=== PATIENT | male | born 1945 | race African-American/Black ===

== ENCOUNTER → 2017-02-18 | Outpatient (CLI) | payer MEDICARE ==
[2017-02-18 08:21] LABS: CH 30.5; CHCM 32.8; HCT 43.8 % (39.0-53.0); HDW 2.43; HGB 14.5 gm/dL (13.0-17.5); MCH 30.9 pg (25.0-35.0); MCV 93.4 fL (80.0-100.0); Mean Platelet Volume 7.2; RBC 4.68 m/uL (4.30-5.90); RDW 12.2 % (11.5-15.5); WBC 4.9 k/uL (3.8-10.6)
[2017-02-18 09:13] LABS: ALT 23 U/L (21-72); AST 23 U/L (17-59); Alkaline Phosphatase 82 U/L (38-126); Anion Gap 10 mmol/L; Blood Urea Nitrogen 14 mg/dL (9-20); Carbon Dioxide 26 mmol/L (22-30); Chloride 107 mmol/L (98-107); Cholesterol 121 mg/dL (<200); Glucose 100 mg/dL (74-99); HDL Cholesterol 43 mg/dL (40-60); Non-African American GFR(MDRD) >60 (>60 ml/min/1.73 sqM); Potassium 4.2 mmol/L (3.5-5.1); Sodium 143 mmol/L (137-145); Total Bilirubin 1.6 mg/dL (0.2-1.3); Total Protein 7.9 g/dL (6.3-8.2); Triglycerides 73 mg/dL (<150)
== END | disposition home or self-care (01) ==
LOC: LABWHC1 07:58
PROVIDERS: ATTEND Internal Medicine
DX: I11.9 Hypertensive heart disease without heart failure (principal); K21.0 Gastro-esophageal reflux disease with esophagitis; I49.9 Cardiac arrhythmia, unspecified
CPT/HCPCS: 36415; 80053; 80061; 82272; 84439; 84443; 85027

== ENCOUNTER → 2018-06-02 | Outpatient (CLI) | payer SELFPAY ==
[2018-06-02 10:19] LABS: HGB 13.6 gm/dL (13.0-17.5); MCH 30.2 pg (25.0-35.0); MCHC 32.5 g/dL (31.0-37.0); Mean Platelet Volume 7.4; Platelet Count 195 k/uL (150-450); RBC 4.51 m/uL (4.30-5.90); RDW 12.3 % (11.5-15.5); WBC 3.8 k/uL (3.8-10.6)
[2018-06-02 10:57] LABS: Calcium 9.1 mg/dL (8.4-10.2); Potassium 4.5 mmol/L (3.5-5.1); Total Bilirubin 1.7 mg/dL (0.2-1.3); Total Protein 7.2 g/dL (6.3-8.2)
[2018-06-02 11:11] LABS: T4, Free (Free Thyroxine) 1.12 ng/dL (0.78-2.19)
[2018-06-02 11:25] LABS: Prostate Specific Antigen 1.75 ng/mL (0.00-4.00)
== END | disposition home or self-care (01) ==
LOC: LABWHC1 09:31
PROVIDERS: ATTEND Internal Medicine
DX: Z00.00 Encounter for general adult medical examination without abnormal findings (principal); I11.9 Hypertensive heart disease without heart failure; E78.2 Mixed hyperlipidemia; N41.1 Chronic prostatitis; K21.0 Gastro-esophageal reflux disease with esophagitis; R97.20 Elevated prostate specific antigen [PSA]; N40.1 Benign prostatic hyperplasia with lower urinary tract symptoms; I25.10 Atherosclerotic heart disease of native coronary artery without angina pectoris
CPT/HCPCS: 36415; 80053; 80061; 82272; 84153; 84439; 84443; 85027

== ENCOUNTER → 2018-12-26 | Outpatient (CLI) | payer MEDICARE ==
--- NOTE | 2018-12-26 12:20 | XR ---
Lumbosacral spine HISTORY: Low back pain 5 views of the lumbosacral spine No comparisons There is no evident spondylolysis or spinal. Surgical clips are present in the right upper quadrant. Hypertrophic change disc height loss present especially at L4-5 and L5-S1. There is multilevel spondy losis. There is a slight spinal curvature. Impression: Degenerative disc disease.
== END | disposition home or self-care (01) ==
LOC: RADXRMAIN 09:27
PROVIDERS: ATTEND Internal Medicine
DX: M51.36 Other intervertebral disc degeneration, lumbar region (principal)
CPT/HCPCS: 72110

== ENCOUNTER → 2019-02-23 | Day surgery (SDC) | payer MEDICARE ==
[2019-02-19 09:36] VITALS: BMI 34.7
[~2019-02-23] MED LIST: LACTATED RINGERS 1,000 ML IV SCH; LIDOCAINE 1% 20 ML VIAL (10MG/ML) FOR IV START INTRADERMA ONE; PROPOFOL 10 MG/ML 20 ML VIAL IV ONE
--- NOTE | 2019-02-23 06:55 | P.GSHP ---
History of Present Illness H&P Date: 02/23/19 CHIEF COMPLAINT: Colon screen HISTORY OF PRESENT ILLNESS: The patient is a 73-year-old male who presents for colon screen. Lower endoscopy was offered for further evaluation and management. PAST MEDICAL HISTORY: Please see list. PAST SURGICAL HISTORY: Please see list. MEDICATIONS: Please see list. ALLERGIES: Please see list. SOCIAL HISTORY: No illicit drug use FAMILY HISTORY: No reports of Crohn disease or ulcerative colitis. REVIEW OF ORGAN SYSTEMS: CONSTITUTIONAL: No reports of fevers or chills. PHYSICAL EXAM: VITAL SIGNS: Stable GENERAL: Well-developed pleasant in no acute distress. HEENT: No scleral icterus. Extraocular movements grossly intact. Moist buccal mucosa. NECK: Supple without lymphadenopathy. CHEST: Unlabored respirations. Equal bilateral excursions. CARDIOVASCULAR: Regular rate and rhythm. Distal 2+ pulses. ABDOMEN: Soft, nontender, nondistended. MUSCULOSKELETAL: No clubbing, cyanosis, or edema. ASSESSMENT: 1. Colon screen. PLAN: 1. Recommend proceeding with a lower endoscopy Past Medical History Past Medical History: Hyperlipidemia, Hypertension, Prostate Disorder, Supraventricular Tachycardia (SVT) History of Any Multi-Drug Resistant Organisms: None Reported Past Surgical History: AICD, Cholecystectomy, Heart Catheterization Past Anesthesia/Blood Transfusion Reactions: No Reported Reaction Type of Cardiac Device: Permanent Pacemaker, AICD Device Placement Date:: 07/11/2016 Smoking Status: Former smoker - Past Family History Mother Family Medical History: Cancer Medications and Allergies Home Medications Medication Instructions Recorded Confirmed Type Aspirin [Adult Low Dose Aspirin EC] 81 mg PO DAILY 08/06/17 02/19/19 History Atorvastatin [Lipitor] 40 mg PO DAILY 08/06/17 02/19/19 History Diltiazem Cd [Cardizem Cd] 120 mg PO BID 08/06/17 02/19/19 History Metoprolol Succinate [Toprol XL] 50 mg PO DAILY 08/06/17 02/19/19 History Multivitamins, Thera [Multivitamin 1 tab PO DAILY 08/06/17 02/19/19 History (formulary)] Tamsulosin [Flomax] 0.4 mg PO DAILY 08/06/17 02/19/19 History amLODIPine [Norvasc] 5 mg PO DAILY 08/06/17 02/19/19 History Allergies Allergy/AdvReac Type Severity Reaction Status Date / Time No Known Allergies Allergy Verified 02/19/19 09:08
[2019-02-23 13:51] VITALS: RESP 16; TEMP 97
--- NOTE | 2019-02-23 14:34 | P.PCN ---
Date of Procedure: 02/23/19 Description of Procedure: PREOPERATIVE DIAGNOSIS: Personal history of colon polyps POSTOPERATIVE DIAGNOSIS: Personal history of colon polyps. Rectal polyp Severe sigmoid diverticulosis with active diverticulitis OPERATION: Colonoscopy converted to sigmoidoscopy secondary to active acute diverticulitis Sigmoidoscopy with hot snare polypectomy at the rectum SURGEON: Lovely Potts MD. ANESTHESIA: MAC. INDICATIONS: The patient is a 73-year-old male who presents for colonoscopy screening. Last colonoscopy over 5 years ago. Benefits and risks were described and informed consent was obtained. DESCRIPTION OF PROCEDURE: The patient had undergone Suprep. He had been brought into the operating room and laid in the left lateral decubitus position. After adequate intravenous sedation, the rectum was examined with 2% lidocaine jelly. No external hemorrhoids were encountered. The rectal tone was within normal limits. No lesions were palpated in the rectal vault. An Olympus colonoscope was advanced through a very tortuous sigmoid colon with large wide mouth sigmoid diverticulosis with active diverticulitis prohibiting advancement of scope beyond the descending colon. The prep good. The scope was removed. Active edema along the proximal sigmoid colon also prohibited advancement of the scope secondary to severe [place] diverticulitis. A 4 mm colon polyp was hot snare polypectomy at 10 cm from the anal verge, rectal polyp. Active sigmoid colitis was found. No internal hemorrhoids were found. The colon was desufflated. The patient had tolerated the procedure well. Withdrawal time was over 6 minutes. FINDINGS: Aronchick preparation quality scale 2 (1-5) No internal hemorrhoids No external hemorrhoids No arteriovenous malformations Tortuous sigmoid colon with large wide mouth sigmoid diverticulosis with active diverticulitis prohibiting advancement of scope beyond the descending colon Removal of 1 polyp: - Snare polypectomy 10 cm from the anal verge, 4 mm tubulovillous adenoma polyp. Active edema along the proximal sigmoid colon also prohibited advancement of the scope secondary to severe [place] diverticulitis RECOMMENDATIONS: History of tubular adenomas, recommend repeat colonoscopy in 2 years, 2020 Plan - Discharge Summary Discharge Rx Participant: No New Discharge Prescriptions: No Action Aspirin [Adult Low Dose Aspirin EC] 81 mg PO DAILY Tamsulosin [Flomax] 0.4 mg PO DAILY Metoprolol Succinate [Toprol XL] 50 mg PO DAILY amLODIPine [Norvasc] 5 mg PO DAILY Multivitamins, Thera [Multivitamin (formulary)] 1 tab PO DAILY Diltiazem Cd [Cardizem Cd] 120 mg PO BID Atorvastatin [Lipitor] 40 mg PO DAILY Discharge Medication List Aspirin [Adult Low Dose Aspirin EC] 81 mg PO DAILY 08/06/17 [History] Atorvastatin [Lipitor] 40 mg PO DAILY 08/06/17 [History] Diltiazem Cd [Cardizem Cd] 120 mg PO BID 08/06/17 [History] Metoprolol Succinate [Toprol XL] 50 mg PO DAILY 08/06/17 [History] Multivitamins, Thera [Multivitamin (formulary)] 1 tab PO DAILY 08/06/17 [History] Tamsulosin [Flomax] 0.4 mg PO DAILY 08/06/17 [History] amLODIPine [Norvasc] 5 mg PO DAILY 08/06/17 [History]
[2019-02-23 14:47] VITALS: BP 137/92; PULSE 68
== END | disposition home or self-care (01) ==
LOC: ORWHC2ENDO 13:31
PROVIDERS: ATTEND Surgery Plastic and Reconstructive Surgery
DX: Z12.11 Encounter for screening for malignant neoplasm of colon (principal); K57.32 Diverticulitis of large intestine without perforation or abscess without bleeding; K62.1 Rectal polyp; Z79.82 Long term (current) use of aspirin; I10 Essential (primary) hypertension; E78.5 Hyperlipidemia, unspecified; N40.0 Benign prostatic hyperplasia without lower urinary tract symptoms; Z79.899 Other long term (current) drug therapy; Z86.010 Personal history of colon polyps
CPT/HCPCS: 45338; J2704; 45385

== ENCOUNTER → 2019-03-17 | Outpatient (CLI) | payer MEDICARE ==
--- NOTE | 2019-03-17 11:23 | CT ---
EXAMINATION TYPE: CT abdomen pelvis w con DATE OF EXAM: 03/17/2019 COMPARISON: CT chest and abdomen December 03, 2014. HISTORY: constipation CT DLP: 1737.5 mGycm, Automated Exposure Control for Dose Reduction was Utilized. CONTRAST: CT scan of the abdomen and pelvis is performed with oral and with IV Contrast, patient injected with 100 mL of Isovue 300. FINDINGS: LUNG BASES: Cardiomegaly with pacemaker wires is now present. LIVER/GB: Cholecystectomy clips are again seen. PANCREAS: No significant abnormality is seen. SPLEEN: No significant abnormality is seen. ADRENALS: No significant abnormality is seen. KIDNEYS: A simple appearing 2.4 cm cyst posterior medial right kidney mid pole level image 34 series 7 is increased in size from prior exam. There is symmetric cortical medullary uptake and excretion wi thout hydronephrosis or new solid or cystic lesion in either kidney. BOWEL: Evaluation of bowel is slightly suboptimal due to little enteric contrast which does not reach terminal ileum. Normal-appearing appendix is seen from base of cecum in the right lower quadrant. St omach is poorly distended and thus suboptimally evaluated. There is no suspicious small or large blanca l dilatation. There is significant diverticulosis throughout the colon most prominent in the left and sigmoid colon without convincing CT evidence for acute diverticulitis. PROSTATE/SEMINAL VESICLES: Enlarged prostate gland consistent with BPH bulges on bladder base. LYMPH NODES: No greater than 1cm abdominal or pelvic lymph nodes are appreciated. OSSEOUS STRUCTURES: Moderate to severe disc space narrowing and spurring L5-S1 level is present. OTHER: No significant additional abnormality is seen. IMPRESSION: No bowel obstruction. No significant colonic fecal stasis. Fairly prominent diverticulosi s without convincing CT evidence for acute diverticulitis currently.
== END | disposition home or self-care (01) ==
LOC: RADCTMAIN 08:42
PROVIDERS: ATTEND Surgery Plastic and Reconstructive Surgery
DX: K57.30 Diverticulosis of large intestine without perforation or abscess without bleeding (principal)
CPT/HCPCS: 82565; 84520; 74177; 36415; Q9967 ×2

== ENCOUNTER 2019-04-13 08:30 | Day surgery (SDC) | payer MEDICARE ==
[2019-04-08 08:29] VITALS: BMI 34.0
[~2019-04-13 08:30] MED LIST changes: -LIDOCAINE 1% 20 ML VIAL (10MG/ML) FOR IV START INTRADERMA ONE; +LIDOCAINE 1% 20 ML VIAL (10MG/ML) FOR IV START INTRADERMA PRN; -PROPOFOL 10 MG/ML 20 ML VIAL IV ONE
[2019-04-13] MEDS ORDERED: LACTATED RINGERS 1,000 ML IV ONE (08:52)
[2019-04-13 08:53] VITALS: RESP 18; TEMP 97.4
[2019-04-13] MEDS ORDERED: LIDOCAINE 1% 20 ML VIAL (10MG/ML) FOR IV START INTRADERMA ONE (09:01)
[2019-04-13] MEDS ORDERED: PROPOFOL 10 MG/ML 20 ML VIAL IV ONE (10:59)
--- NOTE | 2019-04-13 10:59 | P.GSHP ---
History of Present Illness H&P Date: 04/13/19 CHIEF COMPLAINT: Colon screen HISTORY OF PRESENT ILLNESS: The patient is a 73-year-old male who presents for colon screen. Lower endoscopy was offered for further evaluation and management. PAST MEDICAL HISTORY: Please see list. PAST SURGICAL HISTORY: Please see list. MEDICATIONS: Please see list. ALLERGIES: Please see list. SOCIAL HISTORY: No illicit drug use FAMILY HISTORY: No reports of Crohn disease or ulcerative colitis. REVIEW OF ORGAN SYSTEMS: CONSTITUTIONAL: No reports of fevers or chills. PHYSICAL EXAM: VITAL SIGNS: Stable GENERAL: Well-developed pleasant in no acute distress. HEENT: No scleral icterus. Extraocular movements grossly intact. Moist buccal mucosa. NECK: Supple without lymphadenopathy. CHEST: Unlabored respirations. Equal bilateral excursions. CARDIOVASCULAR: Regular rate and rhythm. Distal 2+ pulses. ABDOMEN: Soft, nontender, nondistended. MUSCULOSKELETAL: No clubbing, cyanosis, or edema. ASSESSMENT: 1. Colon screen. PLAN: 1. Recommend proceeding with a lower endoscopy Past Medical History Past Medical History: Hyperlipidemia, Hypertension, Prostate Disorder, Supraventricular Tachycardia (SVT) History of Any Multi-Drug Resistant Organisms: None Reported Past Surgical History: AICD, Cholecystectomy, Heart Catheterization, Pacemaker Additional Past Surgical History / Comment(s): colonoscopy Past Anesthesia/Blood Transfusion Reactions: No Reported Reaction Type of Cardiac Device: Permanent Pacemaker, AICD Device Placement Date:: 07/11/2016 Smoking Status: Former smoker - Past Family History Mother Family Medical History: Cancer Medications and Allergies Home Medications Medication Instructions Recorded Confirmed Type Aspirin [Adult Low Dose Aspirin EC] 81 mg PO DAILY 08/06/17 04/08/19 History Atorvastatin [Lipitor] 40 mg PO DAILY 08/06/17 04/08/19 History Diltiazem Cd [Cardizem Cd] 120 mg PO BID 08/06/17 04/08/19 History Metoprolol Succinate [Toprol XL] 50 mg PO DAILY 08/06/17 04/08/19 History Multivitamins, Thera [Multivitamin 1 tab PO DAILY 08/06/17 04/08/19 History (formulary)] Tamsulosin [Flomax] 0.4 mg PO DAILY 08/06/17 04/08/19 History amLODIPine [Norvasc] 5 mg PO DAILY 10/31/17 07/03/19 History Allergies Allergy/AdvReac Type Severity Reaction Status Date / Time No Known Allergies Allergy Verified 04/08/19 08:21 Surgical - Exam Vital Signs Temp Pulse Resp BP Pulse Ox 97.4 F L 84 18 171/81 97 04/13/19 08:51 04/13/19 08:51 04/13/19 08:51 04/13/19 08:51 04/13/19 08:51
--- NOTE | 2019-04-13 11:41 | P.PCN ---
Date of Procedure: 04/13/19 Description of Procedure: PREOPERATIVE DIAGNOSIS: History of colon polyps History of diverticulitis POSTOPERATIVE DIAGNOSIS: History of colon polyps History of diverticulitis Severe bains diverticulosis OPERATION: Colonoscopy to the ileocecal valve SURGEON: Lovely Potts MD. ANESTHESIA: MAC. INDICATIONS: The patient is a 73-year-old male who presents for complete colonoscopy screening. Last attempt over 2 months ago demonstrated active diverticulitis. He has personal history of colon polyps high risk. Last complete colonoscopy 5 years ago. Benefits and risks were described and informed consent was obtained. DESCRIPTION OF PROCEDURE: The patient had undergone Suprep. He had been brought into the operating room and laid in the left lateral decubitus position. After adequate intravenous sedation, the rectum was examined with 2% lidocaine jelly. No external hemorrhoids were encountered. The rectal tone was within normal limits. No lesions were palpated in the rectal vault. An Olympus colonoscope was advanced until the ileocecal valve were clearly viewed. The prep was excellent with clear visualization of the mucosal folds. Severe sigmoid diverticulosis with recent inflammation was found at 30 cm from the anal verge. Very large mouth and multiple diverticula were identified including along the rest of the colon consistent with bains diverticulosis. Abdominal pressure was used to advance the scope. The scope was removed with visualization of each mucosal fold. No colonic polyps were found. No evidence of focal colitis was found. Retroflexion of the scope demonstrated no internal hemorrhoids. The colon was desufflated. The patient had tolerated the procedure well. Withdrawal time was over 6 minutes. FINDINGS: Aronchick preparation quality scale 1 (1-5) No internal hemorrhoids No external prolapsed hemorrhoids. No arteriovenous malformations. No adenomatous polyps. No focal colitis. Severe sigmoid diverticulosis with recent inflammation was found at 30 cm from the anal verge. Very large mouth and multiple diverticula were identified including along the rest of the colon consistent with bains diverticulosis. Abdominal pressure was used to advance the scope. RECOMMENDATIONS: He has multiple diverticulosis with large mouth diverticula, high risk for per foration May benefit from alternatives such as Cologaurd With personal history of colon polyps, ideally repeat colonoscopy 5 years, 2023 Plan - Discharge Summary Discharge Rx Participant: Yes New Discharge Prescriptions: No Action Aspirin [Adult Low Dose Aspirin EC] 81 mg PO DAILY Tamsulosin [Flomax] 0.4 mg PO DAILY Metoprolol Succinate [Toprol XL] 50 mg PO DAILY amLODIPine [Norvasc] 5 mg PO DAILY Multivitamins, Thera [Multivitamin (formulary)] 1 tab PO DAILY Diltiazem Cd [Cardizem Cd] 120 mg PO BID Atorvastatin [Lipitor] 40 mg PO DAILY Discharge Medication List Aspirin [Adult Low Dose Aspirin EC] 81 mg PO DAILY 08/06/17 [History] Atorvastatin [Lipitor] 40 mg PO DAILY 08/06/17 [History] Diltiazem Cd [Cardizem Cd] 120 mg PO BID 08/06/17 [History] Metoprolol Succinate [Toprol XL] 50 mg PO DAILY 08/06/17 [History] Multivitamins, Thera [Multivitamin (formulary)] 1 tab PO DAILY 08/06/17 [History] Tamsulosin [Flomax] 0.4 mg PO DAILY 08/06/17 [History] amLODIPine [Norvasc] 5 mg PO DAILY 08/06/17 [History] Follow up Appointment(s)/Referral(s): Lovely Potts MD [STAFF PHYSICIAN] - 05/05/19 Patient Instructions/Handouts: Diverticulosis Diet (GEN), Diverticulosis (DC) Activity/Diet/Wound Care/Special Instructions: Lower endoscopy as needed Discharge Disposition: HOME SELF-CARE
[2019-04-13 12:03] VITALS: BP 134/76; PULSE 67
== END 2019-04-13 12:04 | disposition home or self-care (01) ==
LOC: ORWHC2ENDO 08:30
PROVIDERS: ATTEND Surgery Plastic and Reconstructive Surgery
DX: Z12.11 Encounter for screening for malignant neoplasm of colon (principal); K57.30 Diverticulosis of large intestine without perforation or abscess without bleeding; Z86.010 Personal history of colon polyps; E78.5 Hyperlipidemia, unspecified; I10 Essential (primary) hypertension; I47.1 Supraventricular tachycardia; Z79.82 Long term (current) use of aspirin; Z87.891 Personal history of nicotine dependence; Z95.810 Presence of automatic (implantable) cardiac defibrillator; Z79.899 Other long term (current) drug therapy
CPT/HCPCS: G0105; J2704; 45378

== ENCOUNTER 2024-03-19 07:48 | Day surgery (SDC) | payer MEDICARE ==
[2024-03-17 09:45] VITALS: BMI 34.0
--- NOTE | 2024-03-19 07:41 | P.GSHP ---
History of Present Illness H&P Date: 03/19/24 CHIEF COMPLAINT: Colon screen HISTORY OF PRESENT ILLNESS: The patient is a 78-year-old male who presents for colon screen. Lower endoscopy was offered for further evaluation and management. PAST MEDICAL HISTORY: Please see list. PAST SURGICAL HISTORY: Please see list. MEDICATIONS: Please see list. ALLERGIES: Please see list. SOCIAL HISTORY: No illicit drug use FAMILY HISTORY: No reports of Crohn disease or ulcerative colitis. REVIEW OF ORGAN SYSTEMS: CONSTITUTIONAL: No reports of fevers or chills. PHYSICAL EXAM: VITAL SIGNS: Stable GENERAL: Well-developed pleasant in no acute distress. HEENT: No scleral icterus. Extraocular movements grossly intact. Moist buccal mucosa. NECK: Supple without lymphadenopathy. CHEST: Unlabored respirations. Equal bilateral excursions. CARDIOVASCULAR: Regular rate and rhythm. Distal 2+ pulses. ABDOMEN: Soft, nontender, nondistended. MUSCULOSKELETAL: No clubbing, cyanosis, or edema. ASSESSMENT: 1. Colon screen. PLAN: 1. Recommend proceeding with a lower endoscopy Past Medical History Past Medical History: Hyperlipidemia, Hypertension, Prostate Disorder, Supraventricular Tachycardia (SVT) History of Any Multi-Drug Resistant Organisms: None Reported Past Surgical History: AICD, Cholecystectomy, Heart Catheterization, Pacemaker Additional Past Surgical History / Comment(s): colonoscopy Past Anesthesia/Blood Transfusion Reactions: No Reported Reaction Type of Cardiac Device: Permanent Pacemaker, AICD Device Placement Date:: 07/11/2016 Past Psychological History: No Psychological Hx Reported Smoking Status: Former smoker Past Alcohol Use History: None Reported Additional Past Alcohol Use History / Comment(s): smoked from age 16 to age 18 SMOKED 1 CIG A DAY Past Drug Use History: None Reported - Past Family History Mother Family Medical History: Cancer Medications and Allergies Home Medications Medication Instructions Recorded Confirmed Type Aspirin [Adult Low Dose Aspirin EC] 81 mg PO DAILY 08/06/17 03/17/24 History Atorvastatin [Lipitor] 40 mg PO DAILY 08/06/17 03/17/24 History amLODIPine [Norvasc] 10 mg PO DAILY 08/06/17 03/17/24 History Metoprolol Tartrate [Lopressor] 100 mg PO BID 03/17/24 03/17/24 History Mexiletine [Mexitil] 200 mg PO DIRECTED 03/17/24 03/17/24 History lisinopriL [Zestril] 20 mg PO DAILY 03/17/24 03/17/24 History Allergies Allergy/AdvReac Type Severity Reaction Status Date / Time No Known Allergies Allergy Verified 03/17/24 09:38
[2024-03-19 08:28] VITALS: RESP 16; TEMP 97.1
[2024-03-19] MEDS: LACTATED RINGERS 1,000 ML IV SCH (08:37)
[2024-03-19] MEDS: IV FLUID CONTINUATION 1,000 ML IV ONE (08:37)
[2024-03-19] MEDS ORDERED: PROPOFOL 10 MG/ML 20 ML VIAL IV ONE (08:43)
[2024-03-19 09:45] VITALS: BP 122/79; PULSE 62
--- NOTE | 2024-03-19 10:13 | P.PCN ---
Date of Procedure: 03/19/24 Description of Procedure: PREOPERATIVE DIAGNOSIS: Personal history of colon polyps Colonoscopy screening POSTOPERATIVE DIAGNOSIS: Tubular adenoma ascending colon Tubular adenoma transverse colon Tubular adenoma cecum Sigmoid diverticulosis, severe Moderate pandiverticulosis OPERATION: Colonoscopy to the ileocecal valve and appendiceal orifice, cecum Colonoscopy with hot snare polypectomy SURGEON: Lovely Potts MD. ANESTHESIA: MAC. INDICATIONS: The patient is an 78-year-old male who presents personal history of colon polyps. Last colonoscopy 5 years. Benefits and risks were described and informed consent was obtained. DESCRIPTION OF PROCEDURE: The patient had undergone Sutab prep. The patient had been brought into the operating room and laid in the left lateral decubitus position. After adequate intravenous sedation, the rectum was examined with 2% lidocaine jelly. The prostate was enlarged. External hemorrhoids were encountered. The rectal tone was within normal limits. No lesions were palpated in the rectal vault. An Olympus colonoscope was advanced until the cecum, ileocecal valve and appendiceal orifice were clearly viewed. The prep was fair with residual stool descending colon and diverticulosis. Severe with moderate pandiverticulosis sigmoid diverticulosis was encountered. Colonic polyps were found and removed. No evidence of focal colitis was found. Retroflexion of the scope demonstrated grade 2 internal hemorrhoids without active bleeding or inflammation. The colon was desufflated. The patient had tolerated the procedure well. Withdrawal time was over 6 minutes. FINDINGS: Aronchick preparation quality scale 3 (1-5) Internal hemorrhoids, grade 2 External hemorrhoids, grade 2. No arteriovenous malformations. Highly redundant sigmoid colon requiring abdominal wall pressure Severe sigmoid diverticulosis with moderate pandiverticulosis Removal of 3 polyps: - Snare polypectomy ascending colon, 5 mm tubulovillous adenoma. - Snare polypectomy cecum, 6 mm villous adenoma - Snare polypectomy transverse colon, 8 mm flat villous adenoma. No focal colitis. RECOMMENDATIONS: Given severity of tubular adenomas, recommend repeat colonoscopy 3 years 2026. Recommend 3-day colon prep Plan - Discharge Summary Discharge Rx Participant: No New Discharge Prescriptions: Continue Aspirin [Adult Low Dose Aspirin EC] 81 mg PO DAILY amLODIPine [Norvasc] 10 mg PO DAILY Atorvastatin [Lipitor] 40 mg PO DAILY lisinopriL [Zestril] 20 mg PO DAILY Mexiletine [Mexitil] 200 mg PO DIRECTED tadalafiL [Tadalafil] PO DAILY Metoprolol Tartrate [Lopressor] 100 mg PO BID Tamsulosin [Flomax] PO DAILY Finasteride [Proscar] PO DAILY Discharge Medication List Aspirin [Adult Low Dose Aspirin EC] 81 mg PO DAILY 08/06/17 [History] Atorvastatin [Lipitor] 40 mg PO DAILY 08/06/17 [History] amLODIPine [Norvasc] 10 mg PO DAILY 08/06/17 [History] Metoprolol Tartrate [Lopressor] 100 mg PO BID 03/17/24 [History] Mexiletine [Mexitil] 200 mg PO DIRECTED 03/17/24 [History] lisinopriL [Zestril] 20 mg PO DAILY 03/17/24 [History] Finasteride [Proscar] PO DAILY 03/19/24 [History] Tamsulosin [Flomax] PO DAILY 03/19/24 [History] tadalafiL [Tadalafil] PO DAILY 03/19/24 [History] Follow up Appointment(s)/Referral(s): Lovely Potts MD [STAFF PHYSICIAN] - As Needed Patient Instructions/Handouts: *Surgery [facility] - (Anesthesia) Discharge Instructions Outpatient Surgery, Diverticulosis (GEN), Colorectal Polyps (GEN), Diverticulosis Diet (GEN) Activity/Diet/Wound Care/Special Instructions: Repeat colonoscopy in 3 years, 2026. Recommend 3-day bowel prep Discharge Disposition: HOME SELF-CARE
== END 2024-03-19 10:07 | disposition home or self-care (01) ==
LOC: ORWHC2ENDO 07:48
PROVIDERS: ATTEND Surgery Plastic and Reconstructive Surgery
DX: Z12.11 Encounter for screening for malignant neoplasm of colon (principal); D12.0 Benign neoplasm of cecum; D12.3 Benign neoplasm of transverse colon; K57.30 Diverticulosis of large intestine without perforation or abscess without bleeding; I10 Essential (primary) hypertension; E78.5 Hyperlipidemia, unspecified; I47.10 Supraventricular tachycardia, unspecified; N42.9 Disorder of prostate, unspecified; Z79.82 Long term (current) use of aspirin; Z86.010 Personal history of colon polyps; Z79.899 Other long term (current) drug therapy; Z87.891 Personal history of nicotine dependence; Z90.49 Acquired absence of other specified parts of digestive tract; Z95.810 Presence of automatic (implantable) cardiac defibrillator
CPT/HCPCS: 88305; 45385; J2704